=== PATIENT | male | born 1980 | race Caucasian/White ===

== ENCOUNTER 2021-09-25 04:44 | Emergency (ER) | payer MEDICARE, OTHER ==
[2021-09-25] MEDS ORDERED: CEPHALEXIN500 MG PO (07:10)
[2021-09-25] MEDS ORDERED: IBUPROFEN600 MG PO (07:38)
== END 2021-09-25 07:45 | disposition home or self-care (01) ==
LOC: ER1 04:44
DX: R21 Rash and other nonspecific skin eruption (principal); Z88.1 Allergy status to other antibiotic agents; Z88.0 Allergy status to penicillin
CPT/HCPCS: 99283